=== PATIENT | female | born 1980 | race Caucasian/White ===

== ENCOUNTER 2017-04-18 15:04 | Emergency (ER) | payer MEDICAID | END 2017-04-18 16:28 | disposition home or self-care (01) | LOC: D.ER 15:04 | DX: Z76.0 Encounter for issue of repeat prescription (principal) ==

== ENCOUNTER 2017-05-01 18:19 | Emergency (ER) | payer MEDICAID | END 2017-05-01 19:33 | disposition home or self-care (01) | LOC: D.ER 18:19 | DX: F41.9 Anxiety disorder, unspecified (principal); R51 Headache; I10 Essential (primary) hypertension; Z86.73 Personal history of transient ischemic attack (TIA), and cerebral infarction without residual deficits; F17.200 Nicotine dependence, unspecified, uncomplicated ==

== ENCOUNTER 2017-06-04 14:34 | Emergency (ER) | payer MEDICAID | END 2017-06-04 16:04 | disposition home or self-care (01) | LOC: D.ER 14:34 | DX: T43.225A Adverse effect of selective serotonin reuptake inhibitors, initial encounter (principal); Y92.029 Unspecified place in mobile home as the place of occurrence of the external cause; M62.838 Other muscle spasm; M79.605 Pain in left leg; M79.604 Pain in right leg; Z86.73 Personal history of transient ischemic attack (TIA), and cerebral infarction without residual deficits; I10 Essential (primary) hypertension ==

== ENCOUNTER 2018-08-22 15:32 | Emergency (ER) | payer SELFPAY ==
[~2018-08-22] VITALS: Ht 167.6 cm; Wt 70.5 kg
[2018-08-22 15:55] VITALS: Ht 167.6 cm; Wt 70.5 kg
[2018-08-22] MEDS ORDERED: VISTARIL25 MG PO (15:56)
[2018-08-22] MEDS ORDERED: VISTARIL50 MG PO (16:37)
[2018-08-22 17:39] VITALS: BP 128/97
== END 2018-08-22 17:39 | disposition home or self-care (01) ==
LOC: D.ER 15:32
DX: F41.9 Anxiety disorder, unspecified (principal)